=== PATIENT | male | born 1990 | race Caucasian/White ===

== ENCOUNTER 2016-12-21 04:46 | Emergency (ER) | payer MEDICAID, OTHER ==
[~2016-12-21] VITALS: Ht 182.9 cm; Wt 101.4 kg
[2016-12-21 05:00] VITALS: BP 142/76; PULSE 65; RESP 16; TEMP 97.8; O2SAT 98
[2016-12-21] MEDS ORDERED: IBUPROFEN 800 MG TAB PO ONE (05:15)
--- NOTE | 2016-12-21 05:42 | RADHPO ---
EXAM DATE/TIME: 12/21/2016 05:33 [facility] COMPARISON: ELBOW LEFT COMPLETE (4 VWS), March 30, 2016, 5:53. INDICATIONS : Left elbow pain / no known injury. MEDICAL HISTORY : None. SURGICAL HISTORY : None. ENCOUNTER: Initial ACUITY: 1 day PAIN SCORE: 9/10 LOCATION: Left Elbow FINDINGS: Multiple view examination of the left elbow demonstrates no soft tissue swelling, joint effusion, or fracture. The osseous structures are in normal alignment. Bony mineralization is normal. CONCLUSION: 1. Negative examination of the elbow. Ty Douglas MD on December 21, 2016 at 5:40 Board Certified Radiologist. This report was verified electronically.
--- NOTE | 2016-12-21 05:42 | PD ---
HPI Chief Complaint: Pain: Acute or Chronic Time Seen by Provider: 05:54 Travel History International Travel<30 days: No Contact w/Intl Traveler<30days: No Traveled to known affect area: No History of Present Illness HPI 26-year-old male presents to the emergency department for complaint of left arm pain. Patient reports symptoms began around 10 PM. Patient does not recall a specific injury. Patient notes pain is worsened by range of motion and specifically extension at the elbow. 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 Patient has not noticed any redness, swelling, warmth , bruising, coolness, or pallor. There is no ascending pain or erythema and axilla is not involved. There is no numbness tingling or weakness of the extremity. Patient is ambidextrous and is not right or left hand dominant reportedly. Patient rates his pain 5-10 in intensity. At rest pain is 5/10 in intensity with elbow extension patient's pain is 10 over 10 in intensity. Patient was treated in March 2016 for lateral epicondylitis. Patient does not report any other area of discomfort denies neck pain shoulder pain no chest pain no report of shortness of breath. Patient has taken no medication for symptom relief and applied no ice packs or moist heat. Keeping arm at rest provided some relief and again elbow extension exacerbates pain. PFSH Past Medical History Narrative Medical Lateral epicondylitis tobacco use alcohol use Medical History: Denies Significant Hx Diminished Hearing: No Past Surgical History Surgical History: No Previous Surgery Social History Alcohol Use: Yes ("MAYBE ONCE EVERY 6 MONTHS") Tobacco Use: Yes (1 PPD) Substance Use: No Allergies-Medications (Allergen,Severity, Reaction): Coded Allergies: No Known Allergies (Unverified , 12/21/16) Reported Meds & Prescriptions Reported Meds & Active Scripts Active No Active Prescriptions or Reported Medications Review of Systems Except as stated in HPI: all other systems reviewed are Neg General / Constitutional: No: Fever, Chills HENT: No: Congestion, Neck Stiffness, Neck Pain Cardiovascular: No: Chest Pain or Discomfort Respiratory: No: Shortness of Breath, Pleuritic Pain Gastrointestinal: No: Abdominal Pain Genitourinary: No: Flank Pain Musculoskeletal: Positive: Pain (left elbow and arm), No: Myalgias, Arthralgias, Limited ROM Skin: No Rash Psychiatric: No: Anxiety Hematologic/Lymphatic: No: Easy Bruising Physical Exam Narrative GENERAL: Well-developed well-nourished male in no acute distress no respiratory distress SKIN: Warm and dry. HEAD: Normocephalic. EYES: No scleral icterus. No injection or drainage. NECK: Supple, trachea midline. No JVD or lymphadenopathy. No midline tenderness to direct palpation along the cervical spine and no paracervical muscle spasm to palpation. CARDIOVASCULAR: Regular rate and rhythm without murmurs, gallops, or rubs. RESPIRATORY: Breath sounds equal bilaterally. No accessory muscle use. GASTROINTESTINAL: Abdomen soft, non-tender, nondistended. MUSCULOSKELETAL: No cyanosis, or edema. Attention left upper extremity shoulder or elbow wrist and digits demonstrate full range of motion with internal/external rotation abduction and adduction flexion extension elbow flexion extension and pronation supination wrist flexion extension rotation lateral and medial range of motion digits flexion extension and abduction and abduction motor strength is 5 over 5 in intensity sensory exam is intact capillary refill is brisk and less than 2 seconds per digit radial pulse and on a pulse 2+ to palpation no axillary tenderness or lymphadenopathy. BACK: Nontender without obvious deformity. No CVA tenderness. Data Data Last Documented VS Vital Signs Date Time Temp Pulse Resp B/P Pulse Ox O2 Delivery O2 Flow Rate FiO2 12/21/16 05:00 97.8 65 16 142/76 98 Orders Ibuprofen (Motrin) (12/21/16 05:15) Elbow, Complete (4 Vws) (12/21/16 ) [facility] Medical Decision Making Medical Screen Exam Complete: Yes Emergency Medical Condition: Yes Medical Record Reviewed: Yes Interpretation(s) Last Impressions Elbow X-Ray 12/21/16 0000 Signed Impressions: Service Date/Time: Wednesday, December 21, 2016 05:33 - CONCLUSION: 1. Negative examination of the elbow. Ty Douglas MD Differential Diagnosis Sprain strain epicondylitis tendinitis radiculopathy; unlikely septic arthritis or DVT Narrative Course Patient administered 800 mg of ibuprofen by mouth and imaging study ordered of the elbow At 5:58 AM patient noted symptoms are clinically improved after ibuprofen; imaging study shows no obvious abnormality; sling applied Diagnosis Primary Impression: Arm pain, musculoskeletal Qualified Code: M79.602 - Arm pain, musculoskeletal, left Referrals: Primary Care Physician call for appointment Patient Instructions: General Instructions Departure Forms: Tests/Procedures, Work Release Special Instructions: no work x 1 day 12/21/16; no use left arm x 1 day Additional Instructions: wear sling Use ice intermittently for first 12-24 hours to area of soft tissue inflammation or swelling then moist heat for comfort purposes Take medications as prescribed as needed Return to the emergency department for any concerns or change in condition No work times one day and limited duty times one day avoiding use of left upper extremity Follow-up with primary care provider Med/Other Pt SpecificInfo: Prescription(s) given Scripts Methocarbamol (Robaxin)750 Mg [id number] Mg PO Q6HR #10 TAB Ref 0 Prov:Alma Ram MD 12/21/16 Ibuprofen 800 Mg [id number] Mg PO Q8H PRN (PAIN GREATER THAN 6) #12 TAB Ref 0 Prov:Alma Ram MD 12/21/16 Disposition: 01 DISCHARGE HOME Condition: Stable Alma Ram MD Dec 21, 2016 05:42
[2016-12-21] MEDS ORDERED: IBUP800T23 PO (06:00)
[2016-12-21] MEDS ORDERED: ROBA750T PO (06:00)
[2016-12-21 06:11] VITALS: BP 127/65; PULSE 90; RESP 18; O2SAT 96
== END 2016-12-21 06:18 | disposition home or self-care (01) ==
LOC: PHED 04:46
DX: M79.602 Pain in left arm (principal); F17.200 Nicotine dependence, unspecified, uncomplicated; Z87.39 Personal history of other diseases of the musculoskeletal system and connective tissue
CPT/HCPCS: 73080; 99283

== ENCOUNTER 2017-03-29 22:09 | Emergency (ER) | payer MEDICAID, OTHER ==
[~2017-03-29] VITALS: Ht 182.9 cm; Wt 88.0 kg
[~2017-03-29 22:09] MED LIST: IBUP800T23 PO; ROBA750T PO
[2017-03-29 22:10] VITALS: BP 157/86; PULSE 77; RESP 16; TEMP 98.5; O2SAT 98
[2017-03-29] MEDS ORDERED: SODIUM CHLOR 0.9% 1000 ML INJ 1,000 ML IV ONE ×2 (22:21→22:30)
[2017-03-29] MEDS ORDERED: SODIUM CHLORIDE 0.9% FLUSH 10 ML FLUSH IVF PRN (22:30)
[2017-03-29] MEDS ORDERED: DEXAMETHASONE SOD PHOS 20 MG/5 ML VIAL IV PUSH ONE (22:30)
[2017-03-29] MEDS ORDERED: METOCLOPRAMIDE HCL 10 MG/2 ML VIAL IVP ONE (22:30)
[2017-03-29] MEDS ORDERED: diphenhydrAMINE HCL 50 MG/ML VIAL IVP ONE (22:30)
--- NOTE | 2017-03-29 22:35 | PD ---
HPI Chief Complaint: Headache Time Seen by Provider: 22:16 Travel History International Travel<30 days: No Contact w/Intl Traveler<30days: No Traveled to known affect area: No History of Present Illness HPI Patient is a 26-year-old male who presents to emergency room with complaints of a headache. Patient reports that he has had a headache for the past week, reports that he feels a pressure behind his eyes. 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 Patient reports that when he comes home from work, he feels exhausted and has increased pressure behind his eyes. he reports that he has tried taking ibuprofen as well as acetaminophen which does help with the symptoms, reports that he is concerned as he continues to have this headache today feels nauseous and did vomit.. Patient reports that he has had had similar headaches in the past, reports that they would usually resolve on its own. Reports no fevers or chills , denies any trauma to the head or neck. Patient denies thunderclap headache. Reports photophobia with his symptoms. PFSH Past Medical History Diminished Hearing: No Social History Alcohol Use: Yes ("MAYBE ONCE EVERY 6 MONTHS") Tobacco Use: Yes (1 PPD) Substance Use: No Allergies-Medications (Allergen,Severity, Reaction): Coded Allergies: No Known Allergies (Unverified , 03/29/17) Reported Meds & Prescriptions Reported Meds & Active Scripts Active No Active Prescriptions or Reported Medications Review of Systems General / Constitutional: No: Fever Eyes: Positive: Photophobia, No: Visual changes HENT: Positive: Headaches, Lightheadedness, No: Neck Pain Cardiovascular: No: Chest Pain or Discomfort Respiratory: No: Shortness of Breath Gastrointestinal: No: Abdominal Pain Genitourinary: No: Dysuria Musculoskeletal: No: Pain Skin: No Rash Neurologic: No: Weakness Psychiatric: No: Depression Endocrine: No: Polydipsia Hematologic/Lymphatic: No: Easy Bruising Physical Exam Narrative GENERAL: No acute distress, nontoxic SKIN: Focused skin assessment warm/dry. HEAD: Atraumatic. Normocephalic. EYES: Pupils equal and round. No scleral icterus. No injection or drainage. ENT: No nasal bleeding or discharge. Mucous membranes pink and moist. NECK: Trachea midline. No JVD. CARDIOVASCULAR: Regular rate and rhythm. No murmur appreciated. RESPIRATORY: No accessory muscle use. Clear to auscultation. Breath sounds equal bilaterally. GASTROINTESTINAL: Abdomen soft, non-tender, nondistended. Hepatic and splenic margins not palpable. MUSCULOSKELETAL: No obvious deformities. No clubbing. No cyanosis. No edema. NEUROLOGICAL: Awake and alert. No obvious cranial nerve deficits. Motor grossly within normal limits. Normal speech. Cranial nerves II-12 grossly intact with no neurological deficits PSYCHIATRIC: Appropriate mood and affect; insight and judgment normal. Data Data Last Documented VS Vital Signs Date Time Temp Pulse Resp B/P Pulse Ox O2 Delivery O2 Flow Rate FiO2 03/29/17 22:10 98.5 77 16 157/86 98 Room Air Orders Complete Blood Count With Diff (03/29/17 22:21) Comprehensive Metabolic Panel (03/29/17 22:21) Prothrombin Time / Inr (Pt) (03/29/17 22:21) Act Partial Throm Time (Ptt) (03/29/17 22:21) Ct Brain W/O Iv Contrast(Rout) (03/29/17 22:21) Ecg Monitoring (03/29/17 22:21) Iv Access Insert/Monitor (03/29/17 22:21) Sodium Chloride 0.9% Flush (Ns Flush) (03/29/17 22:30) Diphenhydramine Inj (Benadryl Inj) (03/29/17 22:30) Metoclopramide Inj (Reglan Inj) (03/29/17 22:30) Sodium Chlor 0.9% 1000 Ml Inj (Ns 1000 M (03/29/17 22:21) Dexamethasone Inj (Decadron Inj) (03/29/17 22:30) Sodium Chlor 0.9% 1000 Ml Inj (Ns 1000 M (03/29/17 22:30) Labs Laboratory Tests Test 03/29/17 22:44 White Blood Count 7.6 TH/MM3 Red Blood Count 5.01 MIL/MM3 Hemoglobin 14.2 GM/DL Hematocrit 42.3 % Mean Corpuscular Volume 84.5 FL Mean Corpuscular Hemoglobin 28.3 PG Mean Corpuscular Hemoglobin 33.5 % Concent Red Cell Distribution Width 13.2 % Platelet Count 174 TH/MM3 Mean Platelet Volume 8.3 FL Neutrophils (%) (Auto) 47.5 % Lymphocytes (%) (Auto) 38.3 % Monocytes (%) (Auto) 7.7 % Eosinophils (%) (Auto) 6.0 % Basophils (%) (Auto) 0.5 % Neutrophils # (Auto) 3.6 TH/MM3 Lymphocytes # (Auto) 2.9 TH/MM3 Monocytes # (Auto) 0.6 TH/MM3 Eosinophils # (Auto) 0.5 TH/MM3 Basophils # (Auto) 0.0 TH/MM3 CBC Comment DIFF FINAL Differential Comment Prothrombin Time 10.1 SEC Prothromb Time International 0.9 RATIO Ratio Activated Partial 27.6 SEC Thromboplast Time Sodium Level 143 MEQ/L Potassium Level 3.7 MEQ/L Chloride Level 107 MEQ/L Carbon Dioxide Level 28.8 MEQ/L Anion Gap 7 MEQ/L Blood Urea Nitrogen 11 MG/DL Creatinine 1.00 MG/DL Estimat Glomerular Filtration 92 ML/MIN Rate Random Glucose 107 MG/DL Calcium Level 8.8 MG/DL Total Bilirubin 0.3 MG/DL Aspartate Amino Transf 24 U/L (AST/SGOT) Alanine Aminotransferase 26 U/L (ALT/SGPT) Alkaline Phosphatase 78 U/L Total Protein 6.9 GM/DL Albumin 3.9 GM/DL MDM Medical Decision Making Medical Screen Exam Complete: Yes Emergency Medical Condition: Yes Interpretation(s) Vital Signs Date Time Temp Pulse Resp B/P Pulse Ox O2 Delivery O2 Flow Rate FiO2 03/29/17 22:10 98.5 77 16 157/86 98 Room Air Differential Diagnosis Complicated migraine, dehydration, electrolyte abnormality, intracranial mass versus hemorrhage, meningitis though very unlikely, orthostatic hypotension Narrative Course Patient is a 26-year-old male who presents to emergency room with complaints of headaches for the past week. He reports that symptoms have been intermittent over the past week, reports that Tylenol and ibuprofen does make symptoms better. Reports concern as he did feel nauseous and vomited tonight. Patient admits to having similar symptoms in the past, reports no fevers or chills at the symptoms. Patient does have some photophobia with this headache. Patient is nontoxic and evaluation, patient does not have any cranial nerve deficits, he does have a benign neurological evaluation. Plan to obtain CT of the head, lab work, will give IV fluids and migraine cocktail and monitor patient. Vital Signs Date Time Temp Pulse Resp B/P Pulse Ox O2 Delivery O2 Flow Rate FiO2 5/22/17 22:10 98.5 77 16 157/86 98 Room Air Laboratory Tests Test 03/29/17 22:44 White Blood Count 7.6 TH/MM3 (4.0-11.0) Red Blood Count 5.01 MIL/MM3 (4.50-5.90) Hemoglobin 14.2 GM/DL (13.0-17.0) Hematocrit 42.3 % (39.0-51.0) Mean Corpuscular Volume 84.5 FL (80.0-100.0) Mean Corpuscular Hemoglobin 28.3 PG (27.0-34.0) Mean Corpuscular Hemoglobin 33.5 % Concent (32.0-36.0) Red Cell Distribution Width 13.2 % (11.6-17.2) Platelet Count 174 TH/MM3 (150-450) Mean Platelet Volume 8.3 FL (7.0-11.0) Neutrophils (%) (Auto) 47.5 % (16.0-70.0) Lymphocytes (%) (Auto) 38.3 % (9.0-44.0) Monocytes (%) (Auto) 7.7 % (0.0-8.0) Eosinophils (%) (Auto) 6.0 % (0.0-4.0) Basophils (%) (Auto) 0.5 % (0.0-2.0) Neutrophils # (Auto) 3.6 TH/MM3 (1.8-7.7) Lymphocytes # (Auto) 2.9 TH/MM3 (1.0-4.8) Monocytes # (Auto) 0.6 TH/MM3 (0-0.9) Eosinophils # (Auto) 0.5 TH/MM3 (0-0.4) Basophils # (Auto) 0.0 TH/MM3 (0-0.2) CBC Comment DIFF FINAL Differential Comment Prothrombin Time 10.1 SEC (9.8-11.6) Prothromb Time International 0.9 RATIO Ratio Activated Partial 27.6 SEC Thromboplast Time (24.3-30.1) Sodium Level 143 MEQ/L (136-145) Potassium Level 3.7 MEQ/L (3.5-5.1) Chloride Level 107 MEQ/L (98-107) Carbon Dioxide Level 28.8 MEQ/L (21.0-32.0) Anion Gap 7 MEQ/L (5-15) Blood Urea Nitrogen 11 MG/DL (7-18) Creatinine 1.00 MG/DL (0.60-1.30) Estimat Glomerular Filtration 92 ML/MIN (>89) Rate Random Glucose 107 MG/DL (74-106) Calcium Level 8.8 MG/DL (8.5-10.1) Total Bilirubin 0.3 MG/DL (0.2-1.0) Aspartate Amino Transf 24 U/L (15-37) (AST/SGOT) Alanine Aminotransferase 26 U/L (12-78) (ALT/SGPT) Alkaline Phosphatase 78 U/L (45-117) Total Protein 6.9 GM/DL (6.4-8.2) Albumin 3.9 GM/DL (3.4-5.0) Last Impressions Head CT 03/29/171 Signed Impressions: Service Date/Time: Wednesday, March 29, 2017 22:33 - CONCLUSION: Normal examination. Ebenezer Robles MD Patient reevaluated, patient reports that he is feeling much better at this time. Patient reports complete resolution of headache. I reviewed all labs and all studies with patient in detail. Signs and symptoms of when to return to ER was reviewed with patient and his . He will follow up with his pcp and return to ER as needed Diagnosis Primary Impression: Headache Qualified Code: R51 - Nonintractable headache, unspecified chronicity pattern , unspecified headache type Patient Instructions: General Instructions Departure Forms: Tests/Procedures, Work Release Enter return to work date: April 01, 2017 Additional Instructions: Please follow-up with your primary care doctor Return to emergency room if symptoms worsen or persist Return to the emergency room as needed Scripts No Active Prescriptions or Reported Meds Disposition: 01 DISCHARGE HOME Condition: Stable Jade Crowfer Selena MCDERMOTT March 29, 2017 22:35
--- NOTE | 2017-03-29 22:53 | RADRPT ---
EXAM DATE/TIME: 03/29/2017 22:33 [facility] COMPARISON: No previous studies available for comparison. INDICATIONS : Headaches with nausea and vomiting past week. RADIATION DOSE: 47.78 CTDIvol (mGy) MEDICAL HISTORY : None SURGICAL HISTORY : None. ENCOUNTER: Initial ACUITY: 1 week PAIN SCALE: 7/10 LOCATION: Bilateral cranial TECHNIQUE: Multiple contiguous axial images were obtained of the head. Using automated exposure control and adj ustment of the mA and/or kV according to patient size, radiation dose was kept as low as reasonably a chievable to obtain optimal diagnostic quality images. FINDINGS: CEREBRUM: The ventricles are normal for age. No evidence of midline shift, mass lesion, hemorrhage or acute in farction. No extra-axial fluid collections are seen. POSTERIOR FOSSA: The cerebellum and brainstem are intact. The 4th ventricle is midline. The cerebellopontine angle i s unremarkable. EXTRACRANIAL: The visualized portion of the orbits is intact. SKULL: The calvaria is intact. No evidence of skull fracture. CONCLUSION: Normal examination. Ebenezer Robles MD on March 29, 2017 at 22:51 Board Certified Radiologist. This report was verified electronically.
[2017-03-29 22:55] LABS: AUTOMATED NEUTROPHIL # 3.6 TH/MM3 (1.8-7.7); BASOPHIL % 0.5 % (0.0-2.0); EOSINOPHIL # 0.5 TH/MM3 (0-0.4); HEMATOCRIT 42.3 % (39.0-51.0); HEMO FLAGS DIFF FINAL; LYMPH % 38.3 % (9.0-44.0); LYMPHOCYTE # 2.9 TH/MM3 (1.0-4.8); MEAN CELL VOLUME 84.5 FL (80.0-100.0); MEAN CORPUSCULAR HEMOGLOBIN 28.3 PG (27.0-34.0); MEAN CORPUSCULAR HGB CONC 33.5 % (32.0-36.0); MONO % 7.7 % (0.0-8.0); NEUT % 47.5 % (16.0-70.0); PLATELET COUNT 174 TH/MM3 (150-450); RED BLOOD COUNT 5.01 MIL/MM3 (4.50-5.90); RED CELL DISTRIBUTION WIDTH 13.2 % (11.6-17.2); WHITE BLOOD COUNT 7.6 TH/MM3 (4.0-11.0)
[2017-03-29 23:26] LABS: ALT (GPT) 26 U/L (12-78); ANION GAP 7 MEQ/L (5-15); AST (GOT) 24 U/L (15-37); BICARBONATE 28.8 MEQ/L (21.0-32.0); BLOOD UREA NITROGEN 11 MG/DL (7-18); CHLORIDE 107 MEQ/L (98-107); GLOMERULAR FILTRATION RATE 92 ML/MIN (>89); POTASSIUM 3.7 MEQ/L (3.5-5.1); SODIUM (NA) 143 MEQ/L (136-145)
[2017-03-29 23:29] LABS: ALKALINE PHOSPHATASE 78 U/L (45-117); TOTAL BILIRUBIN ADULT 0.3 MG/DL (0.2-1.0)
[2017-03-29 23:31] LABS: APTT (PATIENT) 27.6 SEC (24.3-30.1); INTERNATIONAL NORMALIZED RATIO 0.9 RATIO; PROTHROMBIN TIME - PATIENT 10.1 SEC (9.8-11.6)
[2017-03-30 00:27] VITALS: BP 140/99; PULSE 59; RESP 20; O2SAT 98
== END 2017-03-30 00:29 | disposition home or self-care (01) ==
LOC: NEPE 22:09
DX: R51 Headache (principal); F17.210 Nicotine dependence, cigarettes, uncomplicated; H53.149 Visual discomfort, unspecified; R42 Dizziness and giddiness; R11.2 Nausea with vomiting, unspecified
CPT/HCPCS: 70450; 80053; 85025; 85610; 85730; 96374; 96375; 99285; J1100; J1200; J2765; J7030

== ENCOUNTER 2017-08-07 22:52 | Emergency (ER) | payer MEDICAID ==
[~2017-08-07] VITALS: Ht 182.9 cm; Wt 106.0 kg
[2017-08-07 23:23] VITALS: BP 167/93; PULSE 79; RESP 17; TEMP 98.7; O2SAT 98
[2017-08-07] MEDS ORDERED: TRAM50TA PO (23:55)
[2017-08-07] MEDS ORDERED: IBUP800T23 PO (23:55)
[2017-08-07] MEDS ORDERED: ROBA750T PO (23:55)
--- NOTE | 2017-08-07 23:55 | PD ---
HPI Chief Complaint: Musculoskeletal Complaint Time Seen by Provider: 23:31 Travel History International Travel<30 days: No Contact w/Intl Traveler<30days: No Traveled to known affect area: No History of Present Illness HPI 26-year-old male presents to the emergency department complaining of right forearm pain. Patient states this is recurrent pain. Patient states prior to arrival to the emergency department there is very swollen. 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 This is his third visit to the emergency department. Patient denies any bony pain or elbow pain. Pain is confined to the muscle belly of the forearm. Patient denies any heavy lifting or straining. Patient does not have any paresthesias of the right upper extremity and no neck pain. Patient has not had any fever or chills that he reports. Patient states swelling of the arm has decreased prior to arrival to the emergency department. Patient states he is not working until Wednesday and needs to have something to correct his pain and requests a referral to a specialist to further evaluate this. Patient has had plain films reported as revealed no acute abnormality and does not want any imaging study at this time. Patient rates his pain as 10 over 10 in intensity. PFSH Past Medical History Narrative Medical Musculoskeletal injury; occasional alcohol use and tobacco use; nursing notes reviewed Diminished Hearing: No Musculoskeletal: Yes (BROKEN BONES) Social History Alcohol Use: Yes ("MAYBE ONCE EVERY 6 MONTHS") Tobacco Use: Yes (1 PPD) Substance Use: No Allergies-Medications (Allergen,Severity, Reaction): Coded Allergies: No Known Allergies (Unverified , 08/07/17) Reported Meds & Prescriptions Reported Meds & Active Scripts Active Tramadol (Tramadol HCl) 50 Mg Tab 50 Mg PO Q6H PRN Robaxin (Methocarbamol) 750 Mg Tab 750 Mg PO Q6HR Ibuprofen 800 Mg Tab 800 Mg PO Q8H PRN Review of Systems Except as stated in HPI: all other systems reviewed are Neg General / Constitutional: No: Fever, Chills HENT: No: Congestion Cardiovascular: No: Chest Pain or Discomfort Respiratory: No: Shortness of Breath Gastrointestinal: No: Abdominal Pain Genitourinary: No: Flank Pain Musculoskeletal: Positive: Pain (right forearm) Skin: No Rash Neurologic: No: Weakness, Paresthesia Psychiatric: No: Anxiety Hematologic/Lymphatic: No: Lymph Node Enlargement Physical Exam Narrative GENERAL: Well-developed well-nourished nourished male in no acute distress no respiratory distress SKIN: Warm and dry. MUSCULOSKELETAL: No cyanosis, or edema. No deformity. Distally extremity is neurovascular tendon intact with brisk capillary refill less than 2 seconds per digit thumb apposition intact and sensation intact patient has mild tenderness to palpation of the proximal dorsal forearm without ecchymosis erythema induration or fluctuance. Patient has no point tenderness of the medial and lateral epicondyles and demonstrates no discomfort or decreased or limited range of motion on flexion or extension pronation or supination of the extremity. Wrist extension and flexion are intact. Proximally shoulder demonstrates no limitation of range of motion. BACK: Nontender without obvious deformity. No CVA tenderness. Data Data Last Documented VS Vital Signs Date Time Temp Pulse Resp B/P (MAP) Pulse Ox O2 Delivery O2 Flow Rate FiO2 08/07/17 23:23 98.7 79 17 167/93 (117) 98 Orders Orders Ibuprofen (Motrin) (08/08/17 00:00) Methocarbamol (Robaxin) (08/08/17 00:00) Support Splint (08/07/17 23:51) MDM Medical Decision Making Medical Screen Exam Complete: Yes Emergency Medical Condition: Yes Medical Record Reviewed: Yes Differential Diagnosis Sprain strain muscle tear epicondylitis Narrative Course Patient administered ibuprofen 800 mg ordered Robaxin 500 mg and a sling Diagnosis Primary Impression: Arm pain, musculoskeletal Qualified Codes: M79.601 - Pain in right arm Referrals: Orthopaedic Surgeon call for appointment [facility] Administrator orthopedist: Dr Monteiro Patient Instructions: General Instructions Additional Instructions: Wear sling Use ice intermittently for first 12-24 hours then moist heat Take medication as prescribed as needed Recommend using forearm band/tennis elbow band for support as needed Follow-up orthopedist call office as needed Return to the emergency department for any concerns or change in condition Med/Other Pt SpecificInfo: Prescription(s) given Scripts Tramadol (Tramadol) 50 Mg Tab 50 MG PO Q6H Y for PAIN, #7 TAB 0 Refills Prov: Alma Ram MD 08/07/17 Methocarbamol (Robaxin) 750 Mg Tab 750 MG PO Q6HR for Muscle Spasm, #12 TAB 0 Refills Prov: Alma Ram MD 08/07/17 Ibuprofen (Ibuprofen) 800 Mg Tab 800 MG PO Q8H Y for PAIN GREATER THAN 5, #12 TAB 0 Refills Prov: Alma Ram MD 08/07/17 Disposition: 01 DISCHARGE HOME Condition: Stable Alma Ram MD Aug 07, 2017 23:55
[2017-08-08] MEDS ORDERED: IBUPROFEN 800 MG TAB PO ONE
[2017-08-08] MEDS ORDERED: METHOCARBAMOL 500 MG TAB PO ONE
[2017-08-08 00:27] VITALS: BP 156/84; TEMP 98.6
== END 2017-08-08 00:27 | disposition home or self-care (01) ==
LOC: PHED 22:52
DX: M79.631 Pain in right forearm (principal); R22.31 Localized swelling, mass and lump, right upper limb; F17.200 Nicotine dependence, unspecified, uncomplicated; Z87.39 Personal history of other diseases of the musculoskeletal system and connective tissue
CPT/HCPCS: 99284

== ENCOUNTER 2017-11-01 19:55 | Emergency (ER) | payer SELFPAY ==
[~2017-11-01 19:55] MED LIST changes: +IBUP1TAB7 PO; -IBUP800T23 PO; +TRAM50TA PO
[2017-11-01 19:58] VITALS: BP 163/94; PULSE 72; RESP 20; TEMP 98.9; O2SAT 96
--- NOTE | 2017-11-01 20:29 | PD ---
HPI Chief Complaint: Respiratory Symptoms Time Seen by Provider: 20:19 Travel History International Travel<30 days: No Contact w/Intl Traveler<30days: No Traveled to known affect area: No History of Present Illness HPI The patient is a 26-year-old male who complains of cough productive of yellow sputum, wheezing since -4 days. He denies any fever. He brought to of his other children with him with similar symptoms. He denies any nausea, vomiting or diarrhea. He does smoke one pack a day. 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 [facility] Past Medical History Diminished Hearing: No Musculoskeletal: Yes ([place]ON[place]) Social History Alcohol Use: No Tobacco Use: Yes Substance Use: No Allergies-Medications (Allergen,Severity, Reaction): Coded Allergies: No Known Allergies (Unverified , 08/08/17) Reported Meds & Prescriptions Reported Meds & Active Scripts Active Review of Systems Except as stated in HPI: all other systems reviewed are Neg Physical Exam Narrative GENERAL: Well-nourished, well-developed patient in no respiratory distress. His vital signs show blood pressure 163/94 but otherwise normal. SKIN: Focused skin assessment warm/dry. HEAD: Normocephalic. EYES: No scleral icterus. No injection or drainage. NECK: Supple, trachea midline. No JVD or lymphadenopathy. CARDIOVASCULAR: Regular rate and rhythm without murmurs, gallops, or rubs. RESPIRATORY: Breath sounds equal bilaterally. No accessory muscle use. Scattered wheezes and a few rhonchi are heard in all lung byrd, these wheezes are widely scattered. GASTROINTESTINAL: Abdomen soft, non-tender, nondistended. MUSCULOSKELETAL: No cyanosis, or edema. BACK: Nontender without obvious deformity. No CVA tenderness. Data Data Last Documented VS Vital Signs Date Time Temp Pulse Resp B/P (MAP) Pulse Ox O2 Delivery O2 Flow Rate FiO2 11/01/17 19:58 98.9 72 20 163/94 (117) 96 Orders Orders Chest, Pa & Lat (11/01/17 20:29) Influenzae A/B Antigen (11/01/17 20:30) Albuterol-Ipratropium Neb (Duoneb Neb) (11/01/17 20:30) MDM Medical Decision Making Medical Screen Exam Complete: Yes Emergency Medical Condition: Yes Medical Record Reviewed: Yes Differential Diagnosis Bronchitis, pneumonia, COPD with acute exacerbation, Narrative Course The patient got some definite relief with the DuoNeb treatments. He does not have a nebulizer machine at home. He will be given a albuterol HFA puffer. He will also get a tapered course of prednisone. Impression is bronchitis with bronchospasm. The patient will get a 5 day work excuse and he should discontinue smoking. Diagnosis Primary Impression: Bronchitis with bronchospasm Additional Instructions: The prednisone is taken one tablet twice daily for 4 days followed by one tablet once daily for 4 days. Use the albuterol puffer every 4-6 hours as needed. Follow-up with a primary care physician this week. It is absolutely necessary that you discontinue smoking. Med/Other Pt SpecificInfo: Prescription(s) given Scripts Albuterol 8.5 GM Inh (Proair Hfa 8.5 GM Inh) 90 Mcg/Act Aer 2 PUFF INH Q4-6H Y for SHORTNESS OF BREATH, #1 INHALER 0 Refills 108 mcg/actuation Prov: Jhonny Olivarez MD 11/01/17 Prednisone (Prednisone) 50 Mg Tab 50 MG PO BID for X 4 days than daily X 4 days, #12 TAB 0 Refills Prov: Jhonny Olivarez MD 11/01/17 Disposition: 01 DISCHARGE HOME Condition: Stable Jhonny Olivarez MD Nov 01, 2017 20:29
[2017-11-01] MEDS: RESP: ALBUTEROL 2.5 MG/IPRATROPIUM 0.5 MG NEB (SCH) INH (20:50)
--- NOTE | 2017-11-01 21:30 | RADRPT ---
EXAM DATE/TIME: 11/01/2017 20:40 [place] COMPARISON: No previous studies available for comparison. INDICATIONS : Wheezing. MEDICAL HISTORY : None. SURGICAL HISTORY : None. ENCOUNTER: Initial ACUITY: 4 - 6 days PAIN SCORE: 0/10 LOCATION: Bilateral chest FINDINGS: PA and lateral views of the chest. The lungs are clear. Cardiomediastinal silhouette within normal li mits. No evidence of pleural effusion or pneumothorax. CONCLUSION: No acute cardiopulmonary disease identified. Peyman Oswald MD on November 01, 2017 at 21:28 Board Certified Radiologist. This report was verified electronically.
[2017-11-01] MEDS ORDERED: ALBUAER3 INH (22:40)
[2017-11-01] MEDS ORDERED: PRED50 PO (22:40)
[2017-11-01] MEDS ORDERED: predniSONE 20 MG TAB PO ONE (22:45)
[2017-11-01 22:59] VITALS: BP 150/80; TEMP 98.7
== END 2017-11-01 23:10 | disposition home or self-care (01) ==
LOC: PHED 19:55
DX: J40 Bronchitis, not specified as acute or chronic (principal); J98.01 Acute bronchospasm; Z72.0 Tobacco use
CPT/HCPCS: 71020; 87804; 94640; 94664; 99284; J7512